=== PATIENT | male | born 2000 | race Caucasian/White ===

== ENCOUNTER 2022-03-09 19:59 | Emergency (ER) | payer OTHER ==
[~2022-03-09] VITALS: Ht 188 cm; Wt 81.7 kg
[2022-03-09] MEDS ORDERED: NEOPOLHCSU BOTHEARS (22:16)
== END 2022-03-09 22:55 | disposition home or self-care (01) ==
LOC: ER 19:59
DX: H60.93 Unspecified otitis externa, bilateral (principal)
CPT/HCPCS: 99282; A9270